=== PATIENT | female | born 1985 | race Caucasian/White ===

== ENCOUNTER → 2016-08-30 | Outpatient (CLI) | payer MEDICAID ==
--- NOTE | 2016-08-30 16:20 | REP ---
Clinical: Pain . Technique: AP, lateral, bilateral oblique views right foot . Findings: The osseous structures and joint spaces are intact and normal. There is no evidence for acute fracture or dislocation. Lateral view demonstrates moderate to large calcaneal heal spur. Surrounding soft tissues are unremarkable. No subcutaneous emphysema or radiodense foreign body. Impression: [id number] calcaneal heal spur. No acute fracture or dislocation. Signed by Ernesto Tomlinson MD 08/30/2016 04:11 P
== END ==
LOC: M LRY 15:54
PROVIDERS: ATTEND Family Medicine
DX: M77.31 Calcaneal spur, right foot (principal)

== ENCOUNTER → 2016-09-20 | Outpatient (CLI) | payer OTHER | LOC: M HL 09:07 | PROVIDERS: ATTEND Family Medicine | DX: E66.01 Morbid (severe) obesity due to excess calories (principal) ==

== ENCOUNTER → 2016-09-21 | Outpatient (REF) | payer MEDICAID, OTHER ==
[2016-09-21 18:04] LABS: ANION GAP 7 MEQ/L (8-16); BLOOD UREA NITROGEN 10 MG/DL (7-18); CALCIUM LEVEL 8.9 MG/DL (8.5-10.1); CARBON DIOXIDE LEVEL 28 MEQ/L (21-32); CHLORIDE LEVEL 109 MEQ/L (98-107); CHOLESTEROL LEVEL 158 MG/DL (<200); CREATININE FOR GFR 0.84 MG/DL (0.55-1.02); FREE T4 1.09 NG/DL (0.76-1.46); GLOMERULAR FILTRATION RATE > 60.0 (>60); GLUCOSE, FASTING 85 MG/DL (70-105); POTASSIUM SERUM 4.3 MEQ/L (3.5-5.1); SODIUM LEVEL 144 MEQ/L (136-145); TRIGLYCERIDES LEVEL 77 MG/DL (<150)
== END ==
LOC: M SFHCLERA 11:14
PROVIDERS: ATTEND Family Medicine
DX: E66.01 Morbid (severe) obesity due to excess calories (principal)

== ENCOUNTER → 2016-11-02 | Outpatient (CLI) | payer OTHER ==
--- NOTE | 2016-11-06 08:21 | REP ---
CT IACs WITHOUT CONTRAST: HISTORY: Bilateral otalgia. The internal auditory canals, cochlea, vestibules and semicircular canals are normal in appearance. The ossicles are normal in configuration and position. The scutum and tegmen are intact. The middle ear cavities and mastoid air cells are clear. Minimal mucosal thickening is present in the maxillary and right ethmoid sinuses. The nasopharynx is normal in appearance. IMPRESSION: Normal CT IACs. Signed by Tray Hill MD 11/06/2016 09:02 A
== END ==
LOC: M RAD 16:38
PROVIDERS: ATTEND Otolaryngology
DX: H92.03 Otalgia, bilateral (principal)

== ENCOUNTER → 2017-02-02 | Outpatient (REF) | payer OTHER | LOC: M SFHCLERA 16:31 | PROVIDERS: ATTEND Family Medicine | DX: N93.9 Abnormal uterine and vaginal bleeding, unspecified (principal); M25.561 Pain in right knee; Z23 Encounter for immunization; F41.9 Anxiety disorder, unspecified ==